=== PATIENT | male | born 1965 | race Caucasian/White ===

== ENCOUNTER 2023-09-13 09:10 | Outpatient (CLI) | payer MEDICAID, SELFPAY ==
--- NOTE | 2023-09-13 09:14 | MR_ITS ---
WS: [id number] MRI CERVICAL SPINE NONCONTRAST TECHNIQUE: Sagittal T1, T2 and STIR imaging. Axial T2, gradient, and fiesta imaging. CLINICAL INFORMATION: OTHER CERVICAL DISC DEGENERATION COMPARISON: None. FINDINGS: Exaggeration normal cervical lordosis. Tiny faint syrinx in the central cord at C6-7. Cord signal is otherwise normal. C2-C3: Mild facet arthropathy. Spinal canal and foramen are patent. C3-C4: Mild disc osteophyte complex with endplate ridging. Mild LEFT bony foraminal narrowing. Mild f acet arthropathy. Mild central canal stenosis. C4-C5: Disc osteophyte complex with endplate ridging. Mild facet arthropathy. Spinal canal is patent. Mild bilateral bony foraminal narrowing. C5-C6: Disc osteophyte complex with endplate ridging. Small central protrusion with slight contact of the cervical cord. Moderate bilateral bony foraminal narrowing. Mild facet arthropathy. C6-C7: Disc osteophytic ridging. Spinal canal is patent. Moderate facet arthropathy. Mild bilateral b nenita foraminal narrowing. C7-T1: Mild endplate ridging. Mild LEFT and no significant RIGHT foraminal narrowing. Spinal canal is patent. Visualized brain stem structures: Normal. Prevertebral soft tissues: Normal. IMPRESSION: 1. Tiny syrinx within the cervical cord at C5-C6. Cord signal is otherwise normal. 2. Mild central canal stenosis C3-C4 and C5-C6 with small disc osteophyte protrusions. 3. Moderate LEFT C3-C4 and bilateral C5-C6 bony foraminal narrowing. 4. Moderate facet arthropathy C4-C5 and LEFT C5-C6.
== END 2023-09-13 09:11 | disposition home or self-care (01) ==
LOC: RAD 09:11
PROVIDERS: Visit Provider Family Medicine
DX: M50.30 Other cervical disc degeneration, unspecified cervical region (principal); G95.0 Syringomyelia and syringobulbia; M48.02 Spinal stenosis, cervical region; M25.78 Osteophyte, vertebrae; M47.812 Spondylosis without myelopathy or radiculopathy, cervical region
CPT/HCPCS: 72141